=== PATIENT | female | born 1945 | race Caucasian/White ===

== ENCOUNTER 2024-09-03 12:31 | Day surgery (SDC) | payer MEDICARE, OTHER ==
[2024-09-03] MEDS ORDERED: methylPREDNISolone acetate IM ONE (12:32)
[2024-09-03] MEDS ORDERED: LIDOCAINE HCL 2% 100 MG/5 ML IJ ONE (12:32)
[2024-09-03] MEDS ORDERED: Versed 2 MG/2 ML Injection ONE (14:40)
[2024-09-03] MEDS ORDERED: propofoL IV ONE (15:22)
[2024-09-03] MEDS ORDERED: Lactated Ringers 1,000 ML IV ONE (16:37)
--- NOTE | 2024-09-03 21:00 | XRAY ---
Indication: Bilateral L4-S1 MBB. Intraoperative fluoroscopy provided for 18 seconds. Single digital spot image submitted for interpretation demonstrates posterior needle tips projecting over expected left and right L4-S1 nerve roots. Correlate with intraoperative findings/report.
--- NOTE | 2024-09-03 21:22 | XRAY ---
18 seconds of fluoroscopy was used in surgery for a bilateral L4-S1 MBB.
== END 2024-09-03 16:00 | disposition home or self-care (01) ==
LOC: SDC-PAIN 12:31
PROVIDERS: ATTEND Psychiatry & Neurology Pain Medicine
DX: M47.817 Spondylosis without myelopathy or radiculopathy, lumbosacral region (principal)
CPT/HCPCS: 64493; 64494; 72020; 93005; J1010; J2250; J2704

== ENCOUNTER 2025-02-04 13:44 | Day surgery (SDC) | payer MEDICARE, OTHER ==
[2025-02-04] MEDS ORDERED: LIDOCAINE HCL 1% 50 MG/5 ML VL IJ ONE (13:45)
[2025-02-04] MEDS ORDERED: methylPREDNISolone acetate IM ONE (13:45)
[2025-02-04] MEDS ORDERED: BUPIVACAINE 0.5% VIAL IJ ONE (13:45)
[2025-02-04] MEDS ORDERED: Versed 2 MG/2 ML Injection ONE (15:52)
[2025-02-04] MEDS ORDERED: propofoL IV ONE (16:27)
[2025-02-04] MEDS ORDERED: Lactated Ringers 1,000 ML IV ONE (17:11)
--- NOTE | 2025-02-04 20:34 | XRAY ---
Indication: Right SI joint and piriformis injection. Intraoperative fluoroscopy provided for 27 seconds. 2 digital spot image submitted for interpretation demonstrates posterior needle tip projecting over right SI joint. 2nd needle tip over right piriformis. Small amount of contrast injected for needle tip placement. Correlate with intraoperative findings/report.
--- NOTE | 2025-02-04 20:36 | XRAY ---
27 seconds of fluoroscopy were used in surgery for a right sacroiliac joint injection and a right piriformis muscle injection.
== END 2025-02-04 17:20 | disposition home or self-care (01) ==
LOC: SDC-PAIN 13:44
PROVIDERS: ATTEND Psychiatry & Neurology Pain Medicine
DX: M46.1 Sacroiliitis, not elsewhere classified (principal); M79.18 Myalgia, other site